=== PATIENT | female | born 1980 | race American Indian/Alaskan Native ===

== ENCOUNTER 2021-12-07 18:45 | Outpatient (CLI) | payer MEDICAID ==
[2021-12-07] MEDS ORDERED: LACTATED RINGERS 500 ML IV ONE (20:38)
[2021-12-07 21:34] LABS: Bacteria,Urine 4+ /HPF (Negative); Calcium Oxalate Crystals,Urine 1+; Mucus,Urine 2+ /HPF
[2021-12-07 21:44] LABS: Bilirubin,Urine Negative (Negative); Blood,Urine Negative (Negative); Color,Urine Colorless (Yellow)
[2021-12-07] MEDS ORDERED: LACTATED RINGERS 1,000 ML ONE (22:32)
[2021-12-07 22:43] VITALS: BP 116/65
--- NOTE | 2021-12-08 02:39 | Ultrasound Report ---
ULTRASOUND OBSTETRIC LIMITED INDICATION / CLINICAL INFORMATION: labor. COMPARISON: None available. FINDINGS: A single live intrauterine is seen in transverse presentation with head to the maternal rig ht with a heart rate of 143 bpm. No acute findings are identified. Cervical length measures 5 cm. IMPRESSION: Single live intrauterine as above. Signer Name: Eliud Sylvester MD Signed: 12/08/2021 2:35 AM Workstation Name: [id number]
== END 2021-12-08 00:07 | disposition home or self-care (01) ==
LOC: TRG 18:45 → APU 18:46 → TRG 12-08 00:07
PROVIDERS: ATTEND Obstetrics & Gynecology
DX: Z34.93 Encounter for supervision of normal pregnancy, unspecified, third trimester (principal); M54.50 Low back pain, unspecified; Z3A.30 30 weeks gestation of pregnancy
CPT/HCPCS: 76817; 81001; 87086